=== PATIENT | female | born 1960 | race African-American/Black ===

== ENCOUNTER 2019-05-14 18:42 | Emergency (ER) | payer BC ==
[2019-05-14 18:58] VITALS: BP 137/79; PULSE 98; TEMP 99; BMI 27.1
--- NOTE | 2019-05-14 20:24 | PDOC ---
History of Present Illness - General Chief Complaint: Revisit,Radiology Variance Stated Complaint: PNEUMONIA Time Seen by Provider: 05/14/19 20:02 History Source: Patient Exam Limitations: No Limitations - History of Present Illness Initial Comments: 05/14/19 20:19 Patient is a 58 year old female with PMH of HCM (s/p septal resection and mitral valve tightening 2015), HTN, pre-DM who presents with cough x5 days. Cough started out as dry and since become productive. Pt endorses dyspnea after coughing episodes and night sweats. No chest pain, SOB at rest, chills, nausea, vomiting. Denies recent travel or sick contacts. Pt saw PCP, Dr. Jones, yesterday for symptoms and received a CXR. She had leftover amoxicillin from her dentist 2 months ago and was told to continue to take that. Pt received a phone call today regarding CXR results. She was told she had a 3cm lesion in the R lung and to come to ER to receive a CT. Of note, pt states she had trauma to her chest several years ago (fell hard onto the corner of a desk). States that a lesion from this event shows up on her mammograms. Denies hx of lung disease. PCP: Dr. Jones Allergies: NKDA 05/14/19 21:09 Past History - Past Medical History Allergies/Adverse Reactions: Allergies Allergy/AdvReac Type Severity Reaction Status Date / Time No Known Allergies Allergy Verified 05/14/19 18:51 Home Medications: Ambulatory Orders levoFLOXacin [Levaquin -] 750 mg PO DAILY #7 tablet 05/14/19 - Psycho Social/Smoking Cessation Hx Smoking History: Never smoked Have you smoked in the past 12 months: No Hx Alcohol Use: Yes Drug/Substance Use Hx: Yes Review of Systems - Review of Systems Able to Perform ROS?: Yes Constitutional: Yes: Diaphoresis, Night Sweats. No: Symptoms Reported, See HPI , Chills, Fever, Loss of Appetite, Malaise, Weakness, Weight Stable, Unintentional Wgt. Loss, Unexplained wgt Loss, Other HEENTM: No: Symptoms Reported, See HPI, Eye Pain, Blurred Vision, Tearing, Recent change in vision, Double Vision, Cataracts, Ear Pain, Ocular Prothesis, Ear Discharge, Nose Pain, Nose Congestion, Tinnitus, Nose Bleeding, Hearing Loss , Throat Pain, Throat Swelling, Mouth Pain, Dental Problems, Difficulty Swallowing, Mouth Swelling, Other Respiratory: Yes: Cough, Shortness of Breath, SOB with Exertion, Productive cough Cardiac (ROS): No: Symptoms Reported, See HPI, Chest Pain, Edema, Irregular Heart Rate, Lightheadedness, Palpitations, Syncope, Chest Tightness, Other ABD/GI: No: Symptoms Reported, See HPI, Abdominal Distended, Abd. Pain w/ defecation, Blood Streaked Bowels, Constipated, Diarrhea, Difficulty Swallowing , Nausea, Poor Appetite, Poor Fluid Intake, Rectal Bleeding, Vomiting, Indigestion, Abdominal cramping, Tarry Stools, Other Musculoskeletal: No: Symptoms Reported, See HPI, Back Pain, Gout, Joint Pain, Joint Swelling, Muscle Pain, Muscle Weakness, Neck Pain, Joint Stiffness, Other Integumentary: No: Symptoms Reported, See HPI, Bruising, Change in Color, Change in Hair/Nails, Dryness, Erythema, Flushing, Lesions, Lumps, Pallor, Pruritus, Rash, Sweating, Other Neurological: No: Symptoms reported, See HPI, Headache, Numbness, Paresthesia, Pre-Existing Deficit, Seizure, Tingling, Tremors, Weakness, Unsteady Gait, Ataxia, Dizziness, Other Psychiatric: No: Anxiety, Depression, Frequent Crying, Stressors, Sleep Pattern Change, Emotional Problems, Mood Swings, Change in Appetite, Other *Physical Exam - Vital Signs Last Vital Signs Temp Pulse Resp BP Pulse Ox 99 F 98 H 18 137/79 97 05/14/19 18:52 05/14/19 18:52 05/14/19 18:52 05/14/19 18:52 05/14/19 18:52 - Physical Exam General Appearance: Yes: Nourished, Appropriately Dressed. No: Apparent Distress HEENT: positive: ZEINA, Normal ENT Inspection, Normal Voice, Symmetrical Neck: positive: Trachea midline, Normal Thyroid, Supple. negative: Tender Respiratory/Chest: positive: Wheezing (eXPIRATORY). negative: Chest Tender, Respiratory Distress, Accessory Muscle Use, Labored Respiration, Decreased Breath Sounds, Rhonchi Cardiovascular: positive: Regular Rhythm, Regular Rate, S1, S2. negative: Edema , JVD, Murmur Vascular Pulses: Dorsalis-Pedis (R): 2+, Doralis-Pedis (L): 2+ Gastrointestinal/Abdominal: positive: Normal Bowel Sounds, Soft. negative: Tender Extremity: positive: Normal Capillary Refill, Normal Inspection, Normal Range of Motion Integumentary: positive: Normal Color, Dry ED Treatment Course - LABORATORY CBC & Chemistry Diagram: 05/14/19 21:20 05/14/19 20:55 - RADIOLOGY Radiology Studies Ordered: Category Date Time Status CHEST CT WITHOUT CONTRAST [CT] Stat CT Scan 05/14/19 20:18 Ordered Medical Decision Making - Medical Decision Making 05/14/19 20:26 -CBC, CMP, lactate, blood cx -CT chest 05/14/19 22:14 Labs reviewed, wnl. Afebrile. Satting well on RA. CT chest: infiltrate within medial basal segment of RLL. Smaller patchy infiltrates within lateral basal segment of RLL as well as wtihin ant and post sergments of RUL. 2cm noncalcified RUL ant segment pulmonary nodule 0.3cm intracortical calcification within upper pole of R kidney. No pleural effusion Discharge - Discharge Information Problems reviewed: Yes Clinical Impression/Diagnosis: Pneumonia Qualifiers: Pneumonia type: due to unspecified organism Laterality: right Lung location: lower lobe of lung Qualified Code(s): J18.9 - Pneumonia, unspecified organism Condition: Stable Disposition: HOME - Admission No - Additional Discharge Information Prescriptions: levoFLOXacin [Levaquin -] 750 mg PO DAILY #7 tablet - Follow up/Referral Referrals: Arnold Jones MD [Primary Care Provider] - Miguel Carrillo MD [Staff Physician] - - Patient Discharge Instructions Patient Printed Discharge Instructions: Pneumonia-Adult Additional Instructions: You were evaluated in the ER for a cough. A CAT scan of your lungs showed evidence of pneumonia. You should take antibiotics to treat your infection as follows: - Take Levaquin 750mg for 5 days. Your CAT scan also showed a small lesion in your lungs. You should follow up within a week with your primary care provider and a aws solution architect for further evaluation. We provided you with a referral to follow up with Dr. Carrillo. Return to the ER if you experience worsening cough, fevers, chills, sweats, nausea, or vomiting. worsening shortness of breath or any concerns. - Post Discharge Activity
--- NOTE | 2019-05-14 21:36 | PDOC ---
Documentation entered by Ronna Douglass SCRIBE, acting as scribe for Tammy Hendrikcs MD. Tammy Hendricks MD: This documentation has been prepared by the Rafat logan Nirvannie, SCRIBE, under my direction and personally reviewed by me in its entirety. I confirm that the documentation accurately reflects all work, treatment, procedures, and medical decision making performed by me. Attending Attestation - Resident Resident Name: Luz Moore - ED Attending Attestation I have performed the following: I have examined & evaluated the patient, The case was reviewed & discussed with the resident, I agree w/resident's findings & plan - HPI HPI: 05/14/19 21:39 The patient is a 58 year old female, with a significant past medical history of Hypertrophic Cardiomyopathy (s/p septal resection and mitral valve tightening 2016), HTN, pre-DM , who presents to the emergency department with 5 days of a progressively worsening cough with a chest x-ray suspicious for pneumonia. As per patient, her cough onset 5 days ago as nonproductive and has since progressed to productive with associated occasional night sweats and difficulty breathing during coughing spells. Patient notes going to her PCP Dr. Jones at which time she had a chest x-ray which depicted a 3cm lesion to the right lung. Patient notes her PCP advised her to report to the ED for further evaluation and chest CT. She endorses taking old Amoxicillin from a dental procedure. Patient notes a history of trauma to her chest several years ago (fell hard onto the corner of a desk) which shows up as a lesion on mammograms. She denies recent chest pain, nausea, vomiting, or diarrhea. Allergies: NKDA Primary Care Physician: Dr. Jones - Physicial Exam PE: 05/14/19 21:35 Awake alert no acute distress lungs are clear bilaterally heart is regular no murmurs rubs or gallops abdomen soft nontender extremities are warm and well perfused no appreciated peripheral edema or calf tenderness skin is warm and dry - Medical Decision Making 05/14/19 21:35 58-year-old female here with recent cough shortness of breath and hoarseness was evaluated in outpatient chest x-ray called back for a questionable right- sided lung mass sent here for CT denies any hemoptysis no recent night sweats fevers chills no weight loss states she has had a known right breast scar and was concerned that maybe that is what they were seeing him a chest x-ray no other current complaints Plan CT chest to evaluate for possible mass basic labs 05/14/19 22:32 p with infiltrate bilobar on cT no wbc, no fever. not hypoxic. has been taking amoxicillin for 5 days. praveena krishna to a flouroquinolone. nodule seen on CT will require [address] will page physician non invasive cardiologist for dr jones to arrange close followup
[2019-05-14 21:47] LABS: BASO % 1.4 % (0-2.0); EOS % 3.6 % (0-4.5); HEMATOCRIT 39.6 % (32.4-45.2); HEMOGLOBIN 13.1 GM/dL (10.7-15.3); LYMPH % 32.5 % (8-40); MCHC 33.1 g/dl (32.0-36.0); MEAN CELL VOLUME 90.8 fl (80-96); MEAN PLT VOLUME 10.4 fl (7.5-11.1); MONO % 12.5 % (3.8-10.2); PLATELET COUNT 170 K/MM3 (134-434); RBC 4.37 M/mm3 (3.60-5.2); RDW 12.7 % (11.6-15.6); WHITE BLOOD COUNT 7.9 K/mm3 (4.0-10.0)
[2019-05-14 22:11] LABS: ALBUMIN 3.8 g/dl (3.4-5.0); BILIRUBIN,TOTAL 0.5 mg/dL (0.2-1); BLOOD UREA NITROGEN 9.8 mg/dL (7-18); CALCIUM 9.4 mg/dL (8.5-10.1); CREATININE 0.7 mg/dL (0.55-1.3); POTASSIUM 3.7 mmol/L (3.5-5.1); TOT PROT 7.9 g/dl (6.4-8.2)
== END 2019-05-14 23:47 | disposition home or self-care (01) ==
LOC: JER 18:42
DX: J18.9 Pneumonia, unspecified organism (principal); I10 Essential (primary) hypertension; E11.9 Type 2 diabetes mellitus without complications
CPT/HCPCS: 36415; 71045-TC-FY; 71250-TC; 80053; 85025; 87040; 99282-25